=== PATIENT | male | born 1980 | race Caucasian/White ===

== ENCOUNTER 2019-02-15 14:19 | Emergency (ER) | payer OTHER ==
[~2019-02-15] VITALS: Ht 180.3 cm; Wt 109.1 kg
[2019-02-15] MEDS ORDERED: KETOROLAC TROMETHAMINE 30 MG/ML VIAL IM ONE (15:45)
[2019-02-15 16:33] VITALS: BP 127/88
== END 2019-02-15 17:04 | disposition home or self-care (01) ==
LOC: EMS 14:19
DX: S40.012A Contusion of left shoulder, initial encounter (principal); M54.2 Cervicalgia; F15.90 Other stimulant use, unspecified, uncomplicated; F17.210 Nicotine dependence, cigarettes, uncomplicated; V49.40XA Driver injured in collision with unspecified motor vehicles in traffic accident, initial encounter; Y93.89 Activity, other specified; Y92.89 Other specified places as the place of occurrence of the external cause; Y99.8 Other external cause status
CPT/HCPCS: 73030; 96372; 99283; 99406; J1885

== ENCOUNTER 2019-03-08 20:52 | Emergency (ER) | payer OTHER ==
[~2019-03-08] VITALS: Ht 180.3 cm; Wt 103.2 kg
[2019-03-08 21:58] LABS: ANION GAP 11 mmol/L (8-16); CALCIUM, TOTAL 9.5 mg/dL (8.8-10.5); CARBON DIOXIDE 25 mmol/L (22-29); CHLORIDE 102 mmol/L (98-107); CREATININE 1.07 mg/dL (0.60-1.30); GLOMERULAR FILTR. RATE CALC > 60 mL/min (>60); GLUCOSE,RANDOM 101 mg/dL (70-110); POTASSIUM 3.8 mmol/L (3.5-5.1); SODIUM SERUM 138 mmol/L (136-145); UREA NITROGEN, BLOOD 16 mg/dL (7-18)
[2019-03-08 22:02] LABS: BASOPHILS % (AUTO) 0.8 % (0.0-2.0); EOSINOPHILS % (AUTO) 2.5 % (1.0-6.0); HEMATOCRIT 50.1 % (41-53); HEMOGLOBIN 17.2 g/dL (13.5-17.5); LYMPHOCYTES # (AUTO) 3.1 K/uL (1.0-4.8); LYMPHOCYTES % (AUTO) 29.3 % (22.0-44.0); MEAN CORPUSCULAR HEMOGLOBIN 32.2 pg (26.0-34.0); MEAN CORPUSCULAR HGB CONC 34.4 G/dL (31.0-37.0); MEAN CORPUSCULAR VOLUME 94 fL (80-100); MONOCYTES # (AUTO) 0.8 K/uL (0.1-1.0); MONOCYTES % (AUTO) 7.8 % (2.0-9.0); NEUTROPHILS # (AUTO) 6.3 K/uL (1.8-7.7); NEUTROPHILS % (AUTO) 59.6 % (40.0-70.0); PLATELET COUNT (AUTO) 285 K/uL (150-450); RED BLOOD CELL COUNT(AUTO) 5.35 MIL/uL (4.50-5.90); RED CELL DISTRIBUTION WIDTH 13.8 % (11.5-14.5)
[2019-03-08 22:07] LABS: ALANINE AMINOTRANSFERASE 39 U/L (12-78); ALKALINE PHOSPHATASE 111 U/L (46-116); ASPARTATE AMINOTRANSFERASE 27 U/L (15-37); BILIRUBIN,TOTAL 0.7 mg/dL (0.1-1.0); TOTAL PROTEIN, SERUM 7.5 g/dL (6.4-8.2)
[2019-03-09 00:41] VITALS: BP 110/74
== END 2019-03-09 00:43 | disposition home or self-care (01) ==
LOC: EMS 20:52
DX: R07.9 Chest pain, unspecified (principal); F41.9 Anxiety disorder, unspecified; R42 Dizziness and giddiness; F17.210 Nicotine dependence, cigarettes, uncomplicated
CPT/HCPCS: 93005; 99406

== ENCOUNTER 2021-04-24 12:00 | Emergency (ER) | payer OTHER ==
[~2021-04-24] VITALS: Ht 180.3 cm; Wt 90.9 kg
[~2021-04-24 12:00] MED LIST: CLIN300C3 PO
[2021-04-24] MEDS ORDERED: LIDOCAINE 1% 10 ML VIAL INJ ONE (14:30)
[2021-04-24] MEDS ORDERED: CEPHALEXIN MONOHYDRATE 500 MG CAPSULE PO ONE (14:30)
[2021-04-24] MEDS ORDERED: BACITRACIN 0.9 GM PACKET OINTMENT TP ONE (14:30)
[2021-04-24 16:40] VITALS: BP 135/84
[2021-04-24] MEDS ORDERED: HYDROCODONE/ACETAMINOPHEN 5-325 MG TABLET PO ONE (16:45)
== END 2021-04-24 17:09 | disposition home or self-care (01) ==
LOC: EMS 12:11
DX: L03.211 Cellulitis of face (principal); F17.210 Nicotine dependence, cigarettes, uncomplicated; F12.90 Cannabis use, unspecified, uncomplicated; Z88.0 Allergy status to penicillin; Z88.2 Allergy status to sulfonamides; Z79.899 Other long term (current) drug therapy
CPT/HCPCS: 10160; 99284; J3490

== ENCOUNTER 2024-10-22 19:25 | Emergency (ER) | payer OTHER ==
[~2024-10-22] VITALS: Ht 182.9 cm; Wt 100.0 kg
[~2024-10-22 19:25] MED LIST changes: -CLIN300C3 PO; +CLIN300C58 PO
[2024-10-22 19:37] VITALS: BP 120/69; PULSE 98; RESP 16; TEMP 98.2; O2SAT 97
[2024-10-22] MEDS ORDERED: CLIN-26 PO (19:59)
[2024-10-22] MEDS ORDERED: DOXY-354 PO (19:59)
[2024-10-22] MEDS ORDERED: BACI28.410 TP (19:59)
[2024-10-22] MEDS: DOXYCYCLINE HYCLATE 100 MG TABLET PO ONE (20:36)
[2024-10-22] MEDS: BACITRACIN 0.9 GM PACKET OINTMENT TP ONE (20:36)
[2024-10-22] MEDS: CLINDAMYCIN HCL 150 MG CAPSULE PO ONE (20:36)
== END 2024-10-22 20:45 | disposition home or self-care (01) ==
LOC: EMS 19:25
DX: L03.114 Cellulitis of left upper limb (principal); F12.90 Cannabis use, unspecified, uncomplicated; F17.210 Nicotine dependence, cigarettes, uncomplicated; Z88.0 Allergy status to penicillin; Z88.2 Allergy status to sulfonamides
CPT/HCPCS: 99284; Z7502; Z7610

== ENCOUNTER 2024-11-15 10:36 | Emergency (ER) | payer OTHER ==
[~2024-11-15] VITALS: Ht 185.4 cm; Wt 88.1 kg
[~2024-11-15 10:36] MED LIST changes: +BACI28.410 TP; +CLIN-26 PO; +DOXY-354 PO
[2024-11-15 10:53] VITALS: TEMP 97.7
[2024-11-15 11:50] VITALS: BP 122/92; PULSE 72; RESP 18; O2SAT 99
[2024-11-15] MEDS ORDERED: DOXY-354 PO (12:26)
[2024-11-15] MEDS ORDERED: CLIN-26 PO (12:29)
== END 2024-11-15 12:44 | disposition home or self-care (01) ==
LOC: EMS 10:38
DX: L03.211 Cellulitis of face (principal); Z88.0 Allergy status to penicillin; Z88.2 Allergy status to sulfonamides; Z79.899 Other long term (current) drug therapy
CPT/HCPCS: 99281; 99283

== ENCOUNTER 2024-11-19 10:52 | Emergency (ER) | payer OTHER ==
[~2024-11-19] VITALS: Ht 185.4 cm; Wt 88.6 kg
[2024-11-19 10:58] VITALS: BP 138/84; PULSE 84; RESP 18; TEMP 98.1; O2SAT 100
[2024-11-19] MEDS ORDERED: SODIUM CHLORIDE 0.9% 100 ML ONE (12:35)
[2024-11-19] MEDS ORDERED: IOHEXOL 350 MG/ML 100 ML VIAL ONE (12:35)
[2024-11-19] MEDS ORDERED: 0.9% SODIUM CHLORIDE 10 ML SYRINGE IVP ONE (12:38)
[2024-11-19] MEDS: HYDROCODONE/ACETAMINOPHEN 5-325 MG TABLET PO ONE (12:44)
[2024-11-19] MEDS: IBUPROFEN 400 MG TABLET PO ONE (12:44)
[2024-11-19 13:39] LABS: BASOPHILS % (AUTO) 0.8 % (0.0-2.0); EOSINOPHILS % (AUTO) 2.9 % (1.0-6.0); HEMATOCRIT 46.1 % (41-53); LYMPHOCYTES # (AUTO) 2.4 K/uL (1.0-4.8); LYMPHOCYTES % (AUTO) 20.9 % (22.0-44.0); MEAN CORPUSCULAR HEMOGLOBIN 32.8 pg (26.0-34.0); MEAN CORPUSCULAR HGB CONC 34.7 G/dL (31.0-37.0); MEAN CORPUSCULAR VOLUME 95 fL (80-100); MONOCYTES # (AUTO) 0.7 K/uL (0.1-1.0); NEUTROPHILS # (AUTO) 7.9 K/uL (1.8-7.7); NEUTROPHILS % (AUTO) 69.4 % (40.0-70.0); PLATELET COUNT (AUTO) 291 K/uL (150-450); RED BLOOD CELL COUNT(AUTO) 4.87 MIL/uL (4.50-5.90); RED CELL DISTRIBUTION WIDTH 13.5 % (11.5-14.5); WHITE BLOOD COUNT (AUTO) 11.3 K/uL (4.5-11.0)
[2024-11-19 13:45] LABS: ANION GAP 9 mmol/L (8-16); CALCIUM, TOTAL 8.6 mg/dL (8.8-10.5); CARBON DIOXIDE 27 mmol/L (22-29); CHLORIDE 101 mmol/L (98-107); CREATININE 0.79 mg/dL (0.60-1.30); GLOMERULAR FILTR. RATE CALC > 60 mL/min (>60); GLUCOSE,RANDOM 147 mg/dL (70-110); POTASSIUM 3.6 mmol/L (3.5-5.1); SODIUM SERUM 137 mmol/L (136-145); UREA NITROGEN, BLOOD 15 mg/dL (7-18)
[2024-11-19] MEDS ORDERED: CLIN-142 PO (18:43)
[2024-11-19] MEDS ORDERED: TRAM50TA5 PO (18:43)
== END 2024-11-19 15:31 | disposition left against medical advice (07) ==
LOC: EMS 10:52
DX: L02.01 Cutaneous abscess of face (principal); R50.9 Fever, unspecified; F17.210 Nicotine dependence, cigarettes, uncomplicated; Z88.0 Allergy status to penicillin; Z88.2 Allergy status to sulfonamides
CPT/HCPCS: 99283; 80048; 85025; 36415; Q9967; J7050

== ENCOUNTER 2024-11-19 15:22 | Emergency (ER) | payer OTHER ==
[~2024-11-19] VITALS: Ht 185.4 cm; Wt 88.6 kg
[2024-11-19 15:25] VITALS: TEMP 98.5
[2024-11-19] MEDS: CLINDAMYCIN PHOS 150 MG/ML 4 ML VIAL IM ONE (18:32)
[2024-11-19] MEDS: LIDOCAINE 1% 10 ML VIAL SQ ONE (18:33)
[2024-11-19 18:37] VITALS: BP 145/79; PULSE 85; RESP 18; O2SAT 99
[2024-11-19] MEDS ORDERED: TRAM50TA5 PO (18:43)
[2024-11-19] MEDS ORDERED: CLIN-142 PO (18:43)
[2024-11-19] MEDS: TraMADol HCL 50 MG TABLET PO ONE (18:45)
== END 2024-11-19 18:49 | disposition home or self-care (01) ==
LOC: EMS 15:22
DX: L02.01 Cutaneous abscess of face (principal); L03.211 Cellulitis of face; L01.00 Impetigo, unspecified; F17.210 Nicotine dependence, cigarettes, uncomplicated; Z88.0 Allergy status to penicillin; Z88.2 Allergy status to sulfonamides
CPT/HCPCS: 99283; 10060; 96372; J3490 ×2

== ENCOUNTER 2024-11-22 14:52 | Emergency (ER) | payer OTHER ==
[~2024-11-22] VITALS: Ht 185.4 cm; Wt 88.6 kg
[~2024-11-22 14:52] MED LIST changes: -BACI28.410 TP; +CLIN-142 PO; -CLIN300C58 PO; -DOXY-354 PO; +TRAM50TA5 PO
[2024-11-22] MEDS ORDERED: ASPI-4 PO (15:03)
[2024-11-22] MEDS ORDERED: IBUP-45 PO (15:03)
[2024-11-22 15:05] VITALS: TEMP 98.9
[2024-11-22] MEDS: LIDOCAINE 1% 10 ML VIAL PERC ONE (17:28)
[2024-11-22] MEDS: OxyCODONE HCL/ACETAMINOPHEN 5-325 MG TABLET PO ONE (17:28)
[2024-11-22 19:00] VITALS: BP 129/71; PULSE 69; RESP 16; O2SAT 97
[2024-11-22] MEDS ORDERED: HYDR-4062 PO (19:00)
== END 2024-11-22 19:21 | disposition home or self-care (01) ==
LOC: EMS 15:09
DX: L02.01 Cutaneous abscess of face (principal); F17.210 Nicotine dependence, cigarettes, uncomplicated; Z79.82 Long term (current) use of aspirin; Z88.0 Allergy status to penicillin; Z88.2 Allergy status to sulfonamides; Z72.89 Other problems related to lifestyle
CPT/HCPCS: 10060; 10061; 99283; 99284; J3490